=== PATIENT | male | born 1965 | race Caucasian/White ===

== ENCOUNTER 2024-07-11 20:15 | Inpatient (IN) | payer BC ==
[2024-07-11] MEDS: Morphine 4 MG/ML VIAL IVPUSH ONE ×2 (20:47→21:39)
[2024-07-11 20:54] LABS: MEAN CORPUSCULAR HEMOGLOBIN 31.8 pg (27.0-32.0); MEAN CORPUSCULAR HGB CONC 34.1 g/dL (31.0-35.0); MEAN PLATELET VOLUME 8.9 fL (6.0-10.0); RED BLOOD CELL COUNT 4.72 M/uL (4.50-6.50); RED CELL DISTRIBUTION WIDTH 13.1 % (11.0-16.0); WHITE BLOOD CELL COUNT,WBC 10.5 K/uL (4.0-11.0)
[2024-07-11 21:12] LABS: A/G RATIO 1.1 (0.8-2.0); ALBUMIN 3.8 g/dL (3.4-5.0); BILIRUBIN TOTAL 0.6 mg/dL (0.0-1.0); BUN/CREATININE RATIO 11.2 (6-25); CALCIUM 8.4 mg/dL (8.5-10.1); CARBON DIOXIDE,CO2 31.2 mmol/L (21.0-32.0); CREATININE 0.98 mg/dL (0.70-1.30); EST CRCL DRUG DOSING (CG) 82.77 mL/min; POTASSIUM,K 4.2 mmol/L (3.5-5.1); PROTEIN TOTAL,TP 7.3 g/dL (6.4-8.2)
[2024-07-11] MEDS: Sodium Chloride 0.9% 1,000 ML IV SCH (21:42)
[2024-07-11] MEDS: Iopamidol 612 MG/ML 100 ML Bottle IV SCH (22:23)
[2024-07-11] MEDS: Sodium Chloride 0.9% 50 ML SDV FLUSH ONE (22:23)
[2024-07-12] MEDS: Morphine 4 MG/ML VIAL IVPUSH PRN (01:29)
[2024-07-12] MEDS ORDERED: Sodium Chloride 0.9% 10 ML Syringe FLUSH PRN (04:55)
[2024-07-12] MEDS: Acetaminophen/HYDROcodone 325-5 MG Tab PO PRN (11:00)
[2024-07-12] MEDS: GI Cocktail Oral Solution 30 ML PO ONE (11:09)
[2024-07-12] MEDS: Sodium Chloride 0.9% 1,000 ML IV SCH (22:53)
== END 2024-07-13 11:55 | disposition home or self-care (01) | DRG 282 ==
LOC: LB.ED 20:15 → LB.MS 23:10
PROVIDERS: ADMIT Surgery; ATTEND Surgery
DX: K85.90 Acute pancreatitis without necrosis or infection, unspecified (principal); F15.90 Other stimulant use, unspecified, uncomplicated
CPT/HCPCS: 36415; 74177; 80053; 83690; 84484; 85027; 93005; 93010; A0425; A0428; A9270-GY; J2270; J3490; J7030; Q9967